=== PATIENT | male | born 1985 | race Caucasian/White ===

== ENCOUNTER 2020-06-24 11:55 | Emergency (ER) | payer BC, OTHER ==
--- NOTE | 2020-06-24 12:43 | EDM.PDOC ---
ED HPI GENERAL MEDICAL PROBLEM - General Chief Complaint: Behavioral/Psych Stated Complaint: ANXIETY Time Seen by Provider: 06/24/20 12:01 Source of Information: Reports: Patient, RN Notes Reviewed History Limitations: Reports: No Limitations - History of Present Illness INITIAL COMMENTS - FREE TEXT/NARRATIVE: Patient is a 34-year-old male who presents to the ED for the evaluation of his alcohol abuse, with associated anxiety/depression. The patient notes he came to the ER, as he just did not know where he needed to go to ask about getting on medication. He notes that he has a history of anxiety and depression, and that he drinks when his anxiety and depression seems to worsen, like a Band-Aid. He notes that when he does drink, he drinks anything he can get his hands on, and he drinks enough to blackout. He notes these can go on for 2 to 3 days, or sometimes last up to 7 days. Then he will go times where he does not drink at all. He did enjoy about a 9-month period of sobriety, when he was in college. The patient notes that he would need some medications to control his anxiety, as it seems to be what triggers his alcohol abuse, he also is specifically req uesting Antabuse, or "the medication that makes her sick when you drink". He does note that he has seen a counselor or psychiatrist when he was in college, he has previously been on Prozac, but he just does not think that this helped much. This was roughly 12 years ago. Patient denies any other sick-like symptoms, fever/chills, cough/shortness of breath, nausea/vomiting/diarrhea. He denies any other past medical history other than the anxiety and depression, he takes no regular medications. He has only had shoulder/finger surgeries. He does smoke on a daily basis; 2 packs a week, roughly for the last 20 years. He notes that he has used painkillers, ecstasy, and cocaine in the past. - Related Data Allergies Allergy/AdvReac Type Severity Reaction Status Date / Time No Known Allergies Allergy Verified 06/24/20 12:05 Home Meds: Home Meds Disulfiram [Antabuse] 250 mg PO DAILY #30 tab 06/24/20 [Rx] Escitalopram [Lexapro] 10 mg PO DAILY #30 tab 01/05/21 [Rx] LORazepam [Ativan] 1 mg PO TID PRN #20 tab 06/24/20 [Rx] Past Medical History Neurological History: Reports: Concussion, Head Trauma Psychiatric History: Reports: Addiction, Anxiety, Depression - Past Surgical History Musculoskeletal Surgical History: Reports: Shoulder Surgery, Other (See Below) Other Musculoskeletal Surgeries/Procedures:: Right ring finger surgery. Social & Family History - Family History Family Medical History: No Pertinent Family History - Tobacco Use Tobacco Use Status *Q: Current Every Day Tobacco User Tobacco Use Within Last Twelve Months: Cigarettes Years of Tobacco use: 20 Packs/Tins Daily: 0.2 - Caffeine Use Caffeine Use: Reports: Coffee, Energy Drinks - Alcohol Use Alcohol Use History: Yes Number of Drinks Per Day Comment: Pt notes that he is a binge drinker Alcohol Use Frequency: Binges Desires Substance Cessation Medication: Yes - Recreational Drug Use Recreational Drug Use: Yes Drug Use in Last 12 Months: No Recreational Drug Type: Reports: Cocaine, Ecstasy, Other (see below) (painkillers) Recreational Drug Use Frequency: Binges ED ROS GENERAL - Review of Systems Review Of Systems: Comprehensive ROS is negative, except as noted in HPI. ED EXAM, GENERAL - Physical Exam Exam: See Below Exam Limited By: No Limitations General Appearance: Alert, WD/WN, No Apparent Distress Nose: Normal Inspection Throat/Mouth: Normal Inspection, Normal Lips, Normal Teeth, Normal Gums, Normal Oropharynx, Normal Voice, No Airway Compromise Head: Atraumatic, Normocephalic Neck: Normal Inspection Respiratory/Chest: No Respiratory Distress, Lungs Clear, Normal Breath Sounds, No Accessory Muscle Use, Chest Non-Tender Cardiovascular: Normal Peripheral Pulses, Regular Rate, Rhythm, No Edema Peripheral Pulses: 2+: Radial (L), Radial (R) GI/Abdominal: Normal Bowel Sounds, Soft, Non-Tender, No Distention, No Mass Extremities: Normal Inspection, Normal Capillary Refill Neurological: Alert, Oriented, Normal Cognition, No Motor/Sensory Deficits, Other (Patient is exhibiting no outward signs of alcohol withdrawal at this time like tremulousness.) Psychiatric: Normal Affect, Normal Mood, Anxious (slightly; he is wiggling fingers/picking at cuticles on exam.) Skin Exam: Warm, Dry, Intact, Normal Color Course - Vital Signs Last Recorded V/S: Last Vital Signs Temp 97.5 F 06/24/20 12:01 Pulse 72 06/24/20 12:01 Resp 16 06/24/20 12:01 BP 162/103 H 06/24/20 12:01 Pulse Ox 97 06/24/20 12:01 - Re-Assessments/Exams Free Text/Narrative Re-Assessment/Exam: 06/24/20 12:50 Patient presents to the ED for the evaluation of his alcohol abuse. For today's purposes we will get him started on a couple medications. He was started on Antabuse, Lexapro, and Ativan. Detailed instructions were given to the patient on how he should use these medications. I did discuss Antabuse dosing with Dr. Bach, and he thinks that the 250 mg daily would be appropriate until he can follow-up with a primary care provider. Departure - Departure Time of Disposition: 12:40 Disposition: Home, Self-Care 01 Condition: Good Clinical Impression: Alcohol abuse - Discharge Information *PRESCRIPTION DRUG MONITORING PROGRAM REVIEWED*: Yes *COPY OF PRESCRIPTION DRUG MONITORING REPORT IN PATIENT JAVIER: No Prescriptions: Disulfiram [Antabuse] 250 mg PO DAILY #30 tab LORazepam [Ativan] 1 mg PO TID PRN #20 tab PRN Reason: Anxiety Escitalopram [Lexapro] 10 mg PO DAILY #30 tab Instructions: Alcohol Use Disorder Referrals: PCP,None [Primary Care Provider] - Forms: ED Department Discharge Additional Instructions: You were evaluated in the ER today regarding your alcohol abuse, and wanting to stop drinking. After discussion, you have been started on 3 different medications. #1: Antabuse, 1 tablet daily (this medication will make you nauseous if you try to drink alcohol. Do not take if you have already consumed alcohol within 12 hours.) #2: Ativan, 1 tablet 3 times a day as needed for anxiety. #3: Lexapro, 1 tablet daily for long-term anxiety/depression relief. To retain a refill on these medications you will need to establish with a primary care provider. If you did not have a primary care provider already, I recommend that you follow-up with a provider in our clinic, any family practice provider would be able to provide you with the services. Our clinic telephone number [phone], please call in the morning to obtain an appointment with the provider, for follow-up of your symptoms that prompted your ER visit today. Recommend that you get involved with [facility] services, their general telephone number [phone], their emergency crisis line is [phone]. This would be a to get set up with a counselor, and someone to talk to about your alcohol abuse. Please return to the ER at any time if your symptoms should change or worsen. Sepsis Event Note (ED) - Evaluation Sepsis Screening Result: No Definite Risk - Focused Exam Vital Signs: Vital Signs Temp Pulse Resp BP Pulse Ox 06/24/20 12:01 97.5 F 72 16 162/103 H 97
== END 2020-06-24 12:55 | disposition home or self-care (01) ==
LOC: JD.ED 11:55
DX: F10.10 Alcohol abuse, uncomplicated (principal); F41.9 Anxiety disorder, unspecified; F32.9 Major depressive disorder, single episode, unspecified; F17.210 Nicotine dependence, cigarettes, uncomplicated; Z79.899 Other long term (current) drug therapy
CPT/HCPCS: 99283

== ENCOUNTER 2021-02-16 15:04 | Emergency (ER) | payer BC ==
--- NOTE | 2021-02-16 17:04 | EDM.PDOC ---
ED HPI GENERAL MEDICAL PROBLEM - General Chief Complaint: Respiratory Problem Stated Complaint: COVID+ SOB Time Seen by Provider: 02/16/21 15:25 Source of Information: Reports: Patient History Limitations: Reports: No Limitations - History of Present Illness INITIAL COMMENTS - FREE TEXT/NARRATIVE: 35-year-old male presents the emergency department today with complaints of Covid symptoms. Per the patient's report he developed symptoms of Covid with headache cough and shortness of breath 2 days ago. He went and got tested for Covid on that day and states he tested negative. He reports that today he went through a Covid drive-through and tested positive for Covid. Presents to the ER with complaints of headache, cough, shortness of breath, nausea, decreased appetite. He states he is otherwise healthy. He smokes daily for the past 10 years. O2 saturations at the time of ED triage are 99% on room air. lungs Pain Score (Numeric/FACES): 7 - Related Data Allergies Allergy/AdvReac Type Severity Reaction Status Date / Time No Known Allergies Allergy Verified 06/24/20 12:05 Home Meds: Home Meds Disulfiram [Antabuse] 250 mg PO DAILY #30 tab 06/24/20 [Rx] Escitalopram [Lexapro] 10 mg PO DAILY #30 tab 06/24/20 [Rx] LORazepam [Ativan] 1 mg PO TID PRN #20 tab 06/24/20 [Rx] Ondansetron [Zofran ODT] 4 mg PO Q6H PRN #12 tab.dis 02/16/21 [Rx] dexAMETHasone [Dexamethasone] 6 mg PO DAILY #15 tablet 02/16/21 [Rx] Past Medical History Respiratory History: Reports: SOB Neurological History: Reports: Concussion, Head Trauma Psychiatric History: Reports: Addiction, Anxiety, Depression, Other (See Below) Other Psychiatric History: alcoholim - Infectious Disease History Infectious Disease History: Reports: Novel Coronavirus - Past Surgical History Musculoskeletal Surgical History: Reports: Shoulder Surgery, Other (See Below) Other Musculoskeletal Surgeries/Procedures:: Right ring finger surgery. Social & Family History - Family History Family Medical History: No Pertinent Family History - Tobacco Use Tobacco Use Status *Q: Current Every Day Tobacco User Years of Tobacco use: 10 Packs/Tins Daily: 1 Used Tobacco, but Quit: No - Caffeine Use Caffeine Use: Reports: Coffee, Energy Drinks - Alcohol Use Number of Drinks Per Day: 1 - Recreational Drug Use Recreational Drug Use: Yes Drug Use in Last 12 Months: Yes Recreational Drug Type: Reports: Cocaine Recreational Drug Use Frequency: Weekly ED ROS GENERAL - Review of Systems Review Of Systems: Comprehensive ROS is negative, except as noted in HPI. ED EXAM, GENERAL - Physical Exam Exam: See Below Exam Limited By: No Limitations General Appearance: Alert, WD/WN, Mild Distress Ears: Normal External Exam, Hearing Grossly Normal Nose: Normal Inspection Throat/Mouth: Normal Inspection, Normal Lips, Normal Voice, No Airway Compromise Head: Atraumatic Neck: Normal Inspection, Supple Respiratory/Chest: No Respiratory Distress, Normal Breath Sounds (Left posterior lobe), No Accessory Muscle Use, Chest Non-Tender, Rhonchi Cardiovascular: Normal Peripheral Pulses, Regular Rate, Rhythm, No Edema, No Murmur GI/Abdominal: Normal Bowel Sounds, Soft, Non-Tender, No Distention (Male) Exam: Deferred Rectal (Males) Exam: Deferred Back Exam: Normal Inspection Extremities: Normal Inspection Neurological: Alert, Oriented, Normal Cognition Psychiatric: Normal Affect, Normal Mood Skin Exam: Warm, Dry, Normal Color, No Rash, Diaphoretic Lymphatic: No Adenopathy Course - Vital Signs Text/Narrative:: As stated above patient presents with Covid type symptoms. He states he has been slightly nauseated and has not been able to eat or drink much of anything. He is hemodynamically stable. Upon assessment he does have rhonchi noted to the left lower lobe. I have ordered a chest x-ray. Last Recorded V/S: Last Vital Signs Temp 100.1 F 02/16/21 15:24 Pulse 80 02/16/21 15:24 Resp 20 02/16/21 15:24 BP 141/90 H 02/16/21 15:24 Pulse Ox 99 02/16/21 15:24 - Orders/Labs/Meds Orders: Active Orders 24 hr Category Date Time Status Chest 1V Frontal [CR] Stat Exams 02/16/21 15:41 Taken - Re-Assessments/Exams Free Text/Narrative Re-Assessment/Exam: 02/16/21 17:10 Nothing acute is appreciated on portable view of the chest. Formal radiologist report is pending. Patient will be discharged home with a prescription for Zofran ODT 4 mg tabs every 6 hours as needed for nausea. We will also discharge him home with a prescription for dexamethasone 6 mg daily for 10 days. Departure - Departure Time of Disposition: 17:11 Disposition: Home, Self-Care 01 Condition: Good Clinical Impression: COVID-19 - Discharge Information Prescriptions: dexAMETHasone [Dexamethasone] 6 mg PO DAILY #15 tablet Ondansetron [Zofran ODT] 4 mg PO Q6H PRN #12 tab.dis PRN Reason: Nausea/Vomiting Referrals: Elzbieta Burnette, [employer] [Primary Care Provider] - Forms: ED Department Discharge Additional Instructions: You were seen in the emergency department today with complaints of Covid type symptoms. Chest x-ray was completed which did not show any pneumonia in your O2 saturations while in the emergency department were 98%. While in the emergency department you were given a medication called Zofran. This tab is used for nausea and vomiting. I have sent prescription for this medication to your pharmacy. You may take it every 6 hours as needed for nausea and vomiting. Please allow 30 minutes after taking the medication to eat or drink. You were also given a steroid called dexamethasone while in the emergency department. I have sent prescription to your pharmacy for this medication as well. You will need to take 1-1/2 tabs daily for the next 10 days. You may take Tylenol 650 mg every 4 hours as needed for body aches or ibuprofen 600 mg every 6 hours as needed for body aches. This will help to decrease the inflammation associated with Covid. Go home, rest, drink plenty of fluids. Sepsis Event Note (ED) - Evaluation Sepsis Screening Result: Possible Sepsis Risk - Focused Exam Vital Signs: Vital Signs Temp Pulse Resp BP Pulse Ox 02/16/21 15:24 100.1 F 80 20 141/90 H 99 - My Orders Last 24 Hours: My Active Orders 02/16/21 15:41 Chest 1V Frontal [CR] Stat - Assessment/Plan Last 24 Hours: My Active Orders 02/16/21 15:41 Chest 1V Frontal [CR] Stat
[2021-02-16] MEDS ORDERED: Dexamethasone 4 MG Tab PO ONE (17:10)
[2021-02-16] MEDS ORDERED: Ondansetron 4 MG Tab.DIS PO ONE (17:10)
--- NOTE | 2021-02-16 17:51 | CR ---
Chest: Portable view of the chest was obtained. Comparison: No prior chest imaging is available. Heart size and mediastinum are within normal limits for portable technique. Lungs are clear with no acute parenchymal change. No acute osseous abnormality is appreciated. Impression: 1. Nothing acute is seen on portable chest x-ray. Diagnostic code #1
== END 2021-02-16 18:45 | disposition home or self-care (01) ==
LOC: JD.ED 15:04
DX: U07.1 COVID-19 (principal); Z72.0 Tobacco use
CPT/HCPCS: 71045; 71045-26; 99283; 99284-25

== ENCOUNTER 2023-07-21 06:41 | Emergency (ER) | payer BC ==
[2023-07-21] MEDS ORDERED: Ondansetron 4 MG/2 ML SDV IVPUSH ONE (07:07)
[2023-07-21] MEDS ORDERED: Sodium Chloride 0.9% 10 ML Syringe FLUSH PRN (07:07)
[2023-07-21] MEDS ORDERED: Ketorolac 30 MG/ML SDV IVPUSH ONE (07:08)
[2023-07-21] MEDS ORDERED: HYDROmorphone 0.5 MG/0.5 ML Syringe IVPUSH ONE ×2 (07:08→08:33)
[2023-07-21] MEDS ORDERED: Sodium Chloride 0.9% 1,000 ML IV SCH (07:15)
[2023-07-21 07:26] LABS: APPEARANCE,URINE CLEAR (Clear); BILIRUBIN,URINE NEGATIVE (Negative); COLOR,URINE YELLOW (Yellow); GLUCOSE,URINE NEGATIVE (Negative); KETONES,URINE NEGATIVE (Negative); LEUKOCYTE ESTERASE,URINE NEGATIVE (Negative); NITRITE,URINE NEGATIVE (Negative); OCCULT BLOOD,URINE TRACE-LYSED (Negative); PROTEIN,URINE NEGATIVE (Negative); UROBILINOGEN,URINE 0.2 (0.2-1.0)
[2023-07-21 07:28] LABS: BASOPHILS ABSOLUTE AUTO 0.1 K/mm3 (0.0-0.2); BASOPHILS PERCENT AUTO 0.6 % (0.0-1.0); EOSINOPHILS PERCENT AUTO 0.2 % (0.0-6.0); HEMOGLOBIN 14.2 gm/dl (14.0-18.0); IMMATURE GRAN ABSOLUTE AUTO 0.03 K/mm3 (0.00-0.05); IMMATURE GRAN PERCENT AUTO 0.3 % (0.0-0.4); LYMPHOCYTES ABSOLUTE AUTO 1.6 K/mm3 (1.0-4.8); LYMPHOCYTES PERCENT AUTO 18.2 % (24.0-44.0); MEAN CORPUSCULAR HEMOGLOBIN 31.5 pg (28.0-32.0); MEAN CORPUSCULAR HGB CONC 34.6 g/dl (32.0-36.0); MEAN CORPUSCULAR VOLUME 90.9 fl (83.0-99.0); MEAN PLATELET VOLUME 8.8 fl (9.4-12.4); MONOCYTES ABSOLUTE AUTO 1.7 K/mm3 (0.0-0.8); MONOCYTES PERCENT AUTO 18.8 % (0.0-8.0); NEUTROPHILS ABSOLUTE AUTO 5.6 K/mm3 (1.8-7.7); NEUTROPHILS PERCENT AUTO 61.9 % (41.0-71.0); PLATELET COUNT,PLT 237 K/mm3 (150-400); RED BLOOD CELL COUNT 4.51 M/mm3 (4.52-5.90); WHITE BLOOD CELL COUNT,WBC 9.01 K/mm3 (3.9-11.3)
[2023-07-21 07:39] LABS: BACTERIA,URINE FEW /hpf (FEW); EPITHELIAL CELLS,URINE 0-5 /hpf (0-5); MUCUS,URINE FEW /hpf (FEW); RBC,URINE 0-5 /hpf (0-5); WBC,URINE 0-5 /hpf (0-5)
[2023-07-21 07:50] LABS: A/G RATIO 0.9 (1-2); ALBUMIN 3.6 g/dl (3.4-5.0); ANION GAP 13.8 (5-15); BILIRUBIN TOTAL 0.5 mg/dL (0.2-1.0); BUN/CREATININE RATIO 7.3 (14-18); CALCIUM 8.4 mg/dL (8.5-10.1); CREATININE 1.1 mg/dL (0.7-1.3); EST CRCL DRUG DOSING (CG) 110.96 mL/min; POTASSIUM,K 3.8 mEq/L (3.5-5.1); PROTEIN TOTAL,TP 7.5 g/dl (6.4-8.2); SLIDE REVIEW ABNORMAL SMEAR
== END 2023-07-21 09:15 | disposition home or self-care (01) ==
LOC: JD.ED 06:41
DX: N20.2 Calculus of kidney with calculus of ureter (principal); F17.210 Nicotine dependence, cigarettes, uncomplicated; Z86.16 Personal history of COVID-19
CPT/HCPCS: 36415; 74176; 80053; 81001; 83690; 85025; 96374; 96375; 96376; 99284; J1170; J1885; J2405; J3490

== ENCOUNTER 2023-07-25 09:21 | Emergency (ER) | payer BC ==
[2023-07-25 10:56] LABS: BASOPHILS PERCENT AUTO 0.5 % (0.0-1.0); EOSINOPHILS ABSOLUTE AUTO 0.2 K/mm3 (0.0-0.4); HEMATOCRIT 45.6 % (42.0-52.0); HEMOGLOBIN 15.3 gm/dl (14.0-18.0); IMMATURE GRAN ABSOLUTE AUTO 0.02 K/mm3 (0.00-0.05); IMMATURE GRAN PERCENT AUTO 0.3 % (0.0-0.4); LYMPHOCYTES ABSOLUTE AUTO 1.8 K/mm3 (1.0-4.8); MEAN CORPUSCULAR HEMOGLOBIN 31.2 pg (28.0-32.0); MEAN CORPUSCULAR HGB CONC 33.6 g/dl (32.0-36.0); MEAN CORPUSCULAR VOLUME 93.1 fl (83.0-99.0); MEAN PLATELET VOLUME 8.2 fl (9.4-12.4); MONOCYTES ABSOLUTE AUTO 0.7 K/mm3 (0.0-0.8); MONOCYTES PERCENT AUTO 9.2 % (0.0-8.0); NEUTROPHILS ABSOLUTE AUTO 4.8 K/mm3 (1.8-7.7); WHITE BLOOD CELL COUNT,WBC 7.42 K/mm3 (3.9-11.3)
[2023-07-25 10:58] LABS: PLATELET COUNT,PLT 347 K/mm3 (150-400)
[2023-07-25 11:20] LABS: A/G RATIO 0.7 (1-2); ALBUMIN 3.4 g/dl (3.4-5.0); ANION GAP 14.1 (5-15); BILIRUBIN TOTAL 0.4 mg/dL (0.2-1.0); BUN/CREATININE RATIO 9.1 (14-18); CREATININE 1.1 mg/dL (0.7-1.3); EST CRCL DRUG DOSING (CG) 110.96 mL/min; POTASSIUM,K 5.1 mEq/L (3.5-5.1); PROTEIN TOTAL,TP 8.2 g/dl (6.4-8.2)
[2023-07-25] MEDS: Ondansetron 4 MG/2 ML SDV IVPUSH ONE (11:39)
[2023-07-25] MEDS: HYDROmorphone 0.5 MG/0.5 ML Syringe IVPUSH ONE (11:39)
[2023-07-25] MEDS: Ketorolac 30 MG/ML SDV IVPUSH ONE (11:39)
[2023-07-25] MEDS: Sodium Chloride 0.9% 1,000 ML IV STA (11:39)
[2023-07-25] MEDS: Sodium Chloride 0.9% 10 ML Syringe FLUSH PRN (11:43)
[2023-07-25 11:59] LABS: APPEARANCE,URINE CLEAR (Clear); BILIRUBIN,URINE NEGATIVE (Negative); COLOR,URINE YELLOW (Yellow); GLUCOSE,URINE NEGATIVE (Negative); KETONES,URINE NEGATIVE (Negative); LEUKOCYTE ESTERASE,URINE NEGATIVE (Negative); NITRITE,URINE NEGATIVE (Negative); OCCULT BLOOD,URINE NEGATIVE (Negative); PH,URINE 7.5 (5.0-8.0); PROTEIN,URINE NEGATIVE (Negative); UROBILINOGEN,URINE 0.2 (0.2-1.0)
[2023-07-25 12:10] LABS: BACTERIA,URINE FEW /hpf (FEW); EPITHELIAL CELLS,URINE 0-5 /hpf (0-5); MUCUS,URINE FEW /hpf (FEW); RBC,URINE 0-5 /hpf (0-5); WBC,URINE 0-5 /hpf (0-5)
== END 2023-07-25 13:10 | disposition home or self-care (01) ==
LOC: JD.ED 09:21
DX: R10.30 Lower abdominal pain, unspecified (principal); F17.210 Nicotine dependence, cigarettes, uncomplicated; Z86.16 Personal history of COVID-19
CPT/HCPCS: 36415; 74176; 80053; 81001; 83690; 85025; 96374; 96375; 99284; J1170; J1885; J2405; J3490; J7030

== ENCOUNTER 2023-10-09 12:49 | Emergency (ER) | payer BC ==
[2023-10-09] MEDS: Ketorolac 60 MG/2 ML SDV IM ONE (13:56)
[2023-10-09] MEDS: Amoxicillin/Clavulanate K 875-125 MG Tab PO ONE (13:57)
[2023-10-09] MEDS: HYDROmorphone 1 MG/ML Syringe IM ONE (13:57)
== END 2023-10-09 14:50 | disposition home or self-care (01) ==
LOC: JD.ED 12:49
DX: K08.89 Other specified disorders of teeth and supporting structures (principal); F17.210 Nicotine dependence, cigarettes, uncomplicated; Z86.16 Personal history of COVID-19; Z79.899 Other long term (current) drug therapy
CPT/HCPCS: 96372; 99282; 99283; A9270-GY; J1170; J1885

== ENCOUNTER 2024-07-25 19:10 | Emergency (ER) | payer BC ==
[2024-07-25] MEDS ORDERED: Sodium Chloride 0.9% 10 ML Syringe FLUSH PRN (19:45)
[2024-07-25 20:00] LABS: BASOPHILS ABSOLUTE AUTO 0.1 K/mm3 (0.0-0.2); BASOPHILS PERCENT AUTO 0.6 % (0.0-1.0); EOSINOPHILS ABSOLUTE AUTO 0.3 K/mm3 (0.0-0.4); EOSINOPHILS PERCENT AUTO 3.2 % (0.0-6.0); HEMATOCRIT 44.5 % (42.0-52.0); HEMOGLOBIN 14.9 gm/dl (14.0-18.0); IMMATURE GRAN ABSOLUTE AUTO 0.02 K/mm3 (0.00-0.05); IMMATURE GRAN PERCENT AUTO 0.2 % (0.0-0.4); LYMPHOCYTES ABSOLUTE AUTO 2.3 K/mm3 (1.0-4.8); LYMPHOCYTES PERCENT AUTO 28.7 % (24.0-44.0); MEAN CORPUSCULAR HEMOGLOBIN 31.4 pg (28.0-32.0); MEAN CORPUSCULAR HGB CONC 33.5 g/dl (32.0-36.0); MEAN CORPUSCULAR VOLUME 93.9 fl (83.0-99.0); MEAN PLATELET VOLUME 8.8 fl (9.4-12.4); MONOCYTES ABSOLUTE AUTO 0.6 K/mm3 (0.0-0.8); MONOCYTES PERCENT AUTO 7.4 % (0.0-8.0); NEUTROPHILS ABSOLUTE AUTO 4.8 K/mm3 (1.8-7.7); NEUTROPHILS PERCENT AUTO 59.9 % (41.0-71.0); PLATELET COUNT,PLT 302 K/mm3 (150-400); RED BLOOD CELL COUNT 4.74 M/mm3 (4.52-5.90); WHITE BLOOD CELL COUNT,WBC 8.02 K/mm3 (3.9-11.3)
[2024-07-25 20:20] LABS: A/G RATIO 1.3 (1-2); ALBUMIN 4.4 g/dl (3.4-5.0); ANION GAP 10.7 (5-15); BILIRUBIN TOTAL 0.5 mg/dL (0.2-1.0); BUN/CREATININE RATIO 13.3 (14-18); CALCIUM 9.1 mg/dL (8.5-10.1); CREATININE 0.9 mg/dL (0.7-1.3); EST CRCL DRUG DOSING (CG) 134.31 mL/min; POTASSIUM,K 3.7 mEq/L (3.5-5.1); PROTEIN TOTAL,TP 7.7 g/dl (6.4-8.2)
[2024-07-25 20:23] LABS: APPEARANCE,URINE CLEAR (Clear); BILIRUBIN,URINE NEGATIVE (Negative); COLOR,URINE YELLOW (Yellow); GLUCOSE,URINE NEGATIVE (Negative); KETONES,URINE NEGATIVE (Negative); LEUKOCYTE ESTERASE,URINE NEGATIVE (Negative); NITRITE,URINE NEGATIVE (Negative); OCCULT BLOOD,URINE NEGATIVE (Negative); PH,URINE 6.5 (5.0-8.0); PROTEIN,URINE NEGATIVE (Negative); UROBILINOGEN,URINE 0.2 (0.2-1.0)
[2024-07-25 20:30] LABS: LACTIC ACID 1.1 mmol/L (0.4-2.0)
[2024-07-25] MEDS: Iopamidol 612 MG/ML 100 ML Bottle IVPUSH ONE (20:36)
[2024-07-25] MEDS: Sodium Chloride 0.9% 10 ML Syringe FLUSH ONE (20:36)
== END 2024-07-25 21:32 | disposition home or self-care (01) ==
LOC: JD.ED 19:10
DX: K64.9 Unspecified hemorrhoids (principal); Z79.899 Other long term (current) drug therapy; Z86.16 Personal history of COVID-19
CPT/HCPCS: 36415; 74177; 74177-26; 80053; 80307; 81003; 83605; 85025; 99284; Q9967